=== PATIENT | female | born 1955 | race African-American/Black ===

== ENCOUNTER 2017-09-10 03:50 | Inpatient (IN) ==
[2017-09-10] MEDS ORDERED: SODIUM CHLORIDE 0.9% 1,000 ML IV STA (04:30)
[2017-09-10] MEDS ORDERED: PIPERACILLIN/TAZOBACTAM 3,375 MG in SODIUM CHLORIDE 0.9% 100 ML IV STA ×2 (04:31→07:25)
[2017-09-10 06:18] LABS: Basophils # 0.1 10*3/uL (0.0-0.2); Basophils % 0.7 % (0.0-0.8); Hematocrit 53.1 VOL% (35.7-47.0); Hemoglobin 18.3 GM/DL (12.0-16.0); Immature Granulocytes % 4.1 %; Immature Granulocytes Absolute 0.85 #; Lymphocytes # 2.4 10*3/uL (1.4-4.0); Lymphocytes % 11.6 % (21.3-54.2); Mean Corpuscular HGB Conc 34.5 GM/DL (32-36); Mean Corpuscular Hemoglobin 30 PG (27-34); Monocytes # 1.4 10*3/uL (0.11-0.8); Monocytes % 6.7 % (1.7-12.7); NRBC # 0.02 10*3/uL; Neutrophils # 15.8 10*3/uL (1.4-7.4); Neutrophils % 76.9 % (38.7-73.9); Platelet Count 356 T/CUMM (130-400); Red Cell Distribution Width 14.2 % (9.3-17.3); White Blood Count 20.6 T/CUMM (4-12)
[2017-09-10 06:32] LABS: Albumin 3.9 G/DL (3.4-5.0); Bilirubin,Total 1.4 MG/DL (0.2-1.0); Calcium 8.9 MG/DL (8.5-10.1); Osmolality,Calculated 288.8 MOS/KG (273-304); Potassium 3.8 MMOL/L (3.5-5.1); Total Protein 8.1 G/DL (6.4-8.3)
[2017-09-10] MEDS ORDERED: LIDOCAINE 2% 20 ML VIAL ONE (06:45)
[2017-09-10 06:58] LABS: Band Neutrophils 3 % (0-10); Giant Platelets Few; Lymphocytes 9 % (20-55); Platelet Estimate Adequate; Segmented Neutrophils 85 % (50-85); Total Cells Counted 100
[2017-09-10] MEDS ORDERED: SODIUM CHLORIDE 0.9% 2,000 ML IV STA (07:20)
[2017-09-10] MEDS ORDERED: cefOXitin 2,000 MG in SYRINGE 1 EACH IV ONE (08:31)
[2017-09-10] MEDS ORDERED: PHENYLEPHRINE 10 MG/1 ML VIAL IV ONE ×2 (08:50→11:31)
[2017-09-10] MEDS ORDERED: HEPARIN/NACL 0.9% 2 UNITS/ML 500 ML IV ONE (08:50)
[2017-09-10] MEDS ORDERED: CALCIUM CHLORIDE 1,000 MG/10 ML VIAL IV ONE ×2 (08:51→11:31)
[2017-09-10] MEDS ORDERED: SODIUM BICARBONATE 50 MEQ/50 ML SYRINGE IV ONE (08:51)
[2017-09-10 09:45] LABS: ABG Base Excess 8.8 MMOL/L (-2.5-2.5); ABG HCO3 32.6 MMOL/L (20-26); ABG Oxygen Saturation 99.2 % (95-100); ABG PCO2 37.9 MM HG (35-48); ABG PH 7.535 (7.35-7.45); ABG TCO2 27.8 MMOL/L (23-27); Glucose Heart Surgery 124 MG/DL (74-106); Hematocrit Heart Surgery 39.4 PERCENT (37-47); Hemoglobin Heart Surgery 12.8 G/DL (12.0-16.0); Ionized Calcium Arterial 0.87 MMOL/L (1.21-1.46); PCO2 Patient Temp Arterial 37.9 MMHG; PH Patient Temp Arterial 7.535; Patient Temperature 37 CELCIUS; Potassium Heart/CVR 3.3 MMOL/L (3.5-5.1); Sodium Heart/CVR 133 MMOL/L (135-145)
[2017-09-10] MEDS ORDERED: ROPIVACAINE 0.5% 30 ML VIAL ONE ×2 (10:35)
[2017-09-10] MEDS ORDERED: PROMETHAZINE 25 MG/1 ML VIAL IM PRN (10:41)
[2017-09-10] MEDS ORDERED: MORPHINE 4 MG/1 ML VIAL IV PRN (10:41)
[2017-09-10] MEDS ORDERED: ONDANSETRON 4 MG/2 ML VIAL IV PRN (10:41)
[2017-09-10] MEDS ORDERED: SEVOFLURANE 1 UNIT/15 MINUTE INH ONE (11:31)
[2017-09-10] MEDS ORDERED: MIDAZOLAM 2 MG/2 ML VIAL ONE (11:31)
[2017-09-10] MEDS ORDERED: fentaNYL 100 MCG/2 ML VIAL ONE (11:31)
[2017-09-10] MEDS ORDERED: SODIUM CHLORIDE 0.9% 250 ML IV ONE (11:32)
[2017-09-10] MEDS ORDERED: NEOSTIGMINE 10 MG/10 ML VIAL ONE (11:32)
[2017-09-10] MEDS ORDERED: ROCURONIUM 100 MG/10 ML VIAL IV ONE (11:32)
[2017-09-10] MEDS ORDERED: SUCCINYLCHOLINE 200 MG/10 ML VIAL ONE (11:32)
[2017-09-10] MEDS ORDERED: GLYCOPYRROLATE 0.4 MG/2 ML VIAL ONE (11:32)
[2017-09-10] MEDS ORDERED: LACTATED RINGERS 2,000 ML IV ONE (11:32)
[2017-09-10] MEDS ORDERED: EPINEPHrine 1 MG/ML VIAL ONE (11:32)
[2017-09-10] MEDS ORDERED: ETOMIDATE 40 MG/20 ML VIAL IV ONE (11:32)
[2017-09-10 11:53] LABS: Basophils # 0.1 10*3/uL (0.0-0.2); Basophils % 0.5 % (0.0-0.8); Hematocrit 41.6 VOL% (35.7-47.0); Hemoglobin 14.2 GM/DL (12.0-16.0); Immature Granulocytes % 2.2 %; Immature Granulocytes Absolute 0.28 #; Lymphocytes # 2.3 10*3/uL (1.4-4.0); Lymphocytes % 17.4 % (21.3-54.2); Mean Corpuscular HGB Conc 34.1 GM/DL (32-36); Mean Corpuscular Hemoglobin 30 PG (27-34); Mean Corpuscular Volume 86.3 FL (87-102); Mean Platelet Volume 11.1 FL (9.6-12.0); Monocytes # 0.8 10*3/uL (0.11-0.8); Monocytes % 6.3 % (1.7-12.7); Neutrophils # 9.6 10*3/uL (1.4-7.4); Neutrophils % 73.6 % (38.7-73.9); Platelet Count 308 T/CUMM (130-400); Red Blood Count 4.82 MC/CUMM (3.8-5.5); Red Cell Distribution Width 13.7 % (9.3-17.3)
[2017-09-10] MEDS: LACTATED RINGERS 1,000 ML IV SCH ×2 (12:00→22:00)
[2017-09-10 12:03] LABS: Calcium 9.5 MG/DL (8.5-10.1); Osmolality,Calculated 294.8 MOS/KG (273-304); Potassium 3.7 MMOL/L (3.5-5.1)
[2017-09-10 12:24] LABS: Band Neutrophils 4 % (0-10); Lymphocytes 8 % (20-55); Segmented Neutrophils 80 % (50-85); Total Cells Counted 100
[2017-09-10 12:25] LABS: Giant Platelets Few; Hypochromasia 1+; Ovalocytes Slight; Platelet Estimate Adequate
[2017-09-11] MEDS: LACTATED RINGERS 1,000 ML IV SCH ×3 (03:58→12:18)
[2017-09-11] MEDS ORDERED: ENOXAPARIN 30 MG/0.3 ML SYRINGE SUBCUT SCH (04:40)
[2017-09-11 06:02] LABS: Calcium 8.8 MG/DL (8.5-10.1); Osmolality,Calculated 292.5 MOS/KG (273-304); Potassium 3.9 MMOL/L (3.5-5.1)
[2017-09-11] MEDS: PANTOPRAZOLE 40 MG VIAL IV SCH (09:17)
[2017-09-11] MEDS: DEXT 5% NACL 0.45% KCL 20 MEQ 20 MEQ/1,000 ML BAG IV SCH (14:55)
[2017-09-12] MEDS: DEXT 5% NACL 0.45% KCL 20 MEQ 20 MEQ/1,000 ML BAG IV SCH ×4 (03:02→22:41)
[2017-09-12] MEDS: ENOXAPARIN 40 MG/0.4 ML SYRINGE SUBCUT SCH (04:41)
[2017-09-12 06:03] LABS: Basophils # 0.1 10*3/uL (0.0-0.2); Basophils % 0.4 % (0.0-0.8); Eosinophils % 0.2 % (0.00-10.9); Hematocrit 32.9 VOL% (35.7-47.0); Hemoglobin 11.4 GM/DL (12.0-16.0); Immature Granulocytes % 1.4 %; Immature Granulocytes Absolute 0.27 #; Lymphocytes # 1.8 10*3/uL (1.4-4.0); Lymphocytes % 9.5 % (21.3-54.2); Mean Corpuscular HGB Conc 34.7 GM/DL (32-36); Mean Corpuscular Hemoglobin 30 PG (27-34); Mean Corpuscular Volume 87.3 FL (87-102); Mean Platelet Volume 11.3 FL (9.6-12.0); Monocytes # 0.8 10*3/uL (0.11-0.8); Monocytes % 4.3 % (1.7-12.7); Neutrophils # 16.3 10*3/uL (1.4-7.4); Neutrophils % 84.2 % (38.7-73.9); Platelet Count 261 T/CUMM (130-400); Red Blood Count 3.77 MC/CUMM (3.8-5.5); Red Cell Distribution Width 14.3 % (9.3-17.3); White Blood Count 19.3 T/CUMM (4-12)
[2017-09-12 06:18] LABS: Calcium 8.1 MG/DL (8.5-10.1); Osmolality,Calculated 281.5 MOS/KG (273-304); Potassium 3.5 MMOL/L (3.5-5.1)
[2017-09-12 07:00] LABS: Band Neutrophils 10 % (0-10); Hypochromasia 2+; Lymphocytes 6 % (20-55); Microcytosis 1+; Platelet Estimate Adequate; Segmented Neutrophils 80 % (50-85); Total Cells Counted 100
[2017-09-12] MEDS: MULTIVITAMIN (CENTRUM) TABLET PO SCH (09:22)
[2017-09-12] MEDS: PANTOPRAZOLE 40 MG VIAL IV SCH (09:24)
[2017-09-13] MEDS: ENOXAPARIN 40 MG/0.4 ML SYRINGE SUBCUT SCH (04:42)
[2017-09-13 06:49] LABS: Basophils # 0.1 10*3/uL (0.0-0.2); Basophils % 0.3 % (0.0-0.8); Eosinophils # 0.1 10*3/uL (0.0-0.87); Eosinophils % 0.4 % (0.00-10.9); Hematocrit 34.3 VOL% (35.7-47.0); Hemoglobin 11.5 GM/DL (12.0-16.0); Immature Granulocytes % 2.4 %; Immature Granulocytes Absolute 0.49 #; Lymphocytes # 1.5 10*3/uL (1.4-4.0); Lymphocytes % 7.4 % (21.3-54.2); Mean Corpuscular HGB Conc 33.5 GM/DL (32-36); Mean Corpuscular Hemoglobin 30 PG (27-34); Mean Corpuscular Volume 89.1 FL (87-102); Mean Platelet Volume 10.5 FL (9.6-12.0); Monocytes # 0.8 10*3/uL (0.11-0.8); Neutrophils # 17.5 10*3/uL (1.4-7.4); Neutrophils % 85.5 % (38.7-73.9); Platelet Count 290 T/CUMM (130-400); Red Blood Count 3.85 MC/CUMM (3.8-5.5); Red Cell Distribution Width 14.5 % (9.3-17.3); White Blood Count 20.5 T/CUMM (4-12)
[2017-09-13 07:12] LABS: Eosinophils 1 % (0-10); Giant Platelets Few; Hypochromasia 1+; Lymphocytes 7 % (20-55); Microcytosis Slight; Platelet Estimate Adequate; Segmented Neutrophils 89 % (50-85); Total Cells Counted 100
[2017-09-13 07:22] LABS: Osmolality,Calculated 281.3 MOS/KG (273-304)
[2017-09-13] MEDS: DEXT 5% NACL 0.45% KCL 20 MEQ 20 MEQ/1,000 ML BAG IV SCH (08:54)
[2017-09-13] MEDS: PANTOPRAZOLE 40 MG VIAL IV SCH (08:54)
[2017-09-13] MEDS: MULTIVITAMIN (CENTRUM) TABLET PO SCH (08:54)
[2017-09-14] MEDS: ENOXAPARIN 40 MG/0.4 ML SYRINGE SUBCUT SCH (04:25)
[2017-09-14 05:39] LABS: Basophils # 0.1 10*3/uL (0.0-0.2); Basophils % 0.3 % (0.0-0.8); Eosinophils # 0.3 10*3/uL (0.0-0.87); Eosinophils % 1.7 % (0.00-10.9); Hematocrit 34.1 VOL% (35.7-47.0); Hemoglobin 11.3 GM/DL (12.0-16.0); Immature Granulocytes % 2.4 %; Immature Granulocytes Absolute 0.41 #; Lymphocytes # 1.7 10*3/uL (1.4-4.0); Lymphocytes % 9.9 % (21.3-54.2); Mean Corpuscular HGB Conc 33.1 GM/DL (32-36); Mean Corpuscular Hemoglobin 30 PG (27-34); Mean Corpuscular Volume 89.3 FL (87-102); Mean Platelet Volume 11.1 FL (9.6-12.0); Monocytes % 5.9 % (1.7-12.7); Neutrophils # 13.7 10*3/uL (1.4-7.4); Neutrophils % 79.8 % (38.7-73.9); Platelet Count 328 T/CUMM (130-400); Red Blood Count 3.82 MC/CUMM (3.8-5.5); Red Cell Distribution Width 14.6 % (9.3-17.3); White Blood Count 17.1 T/CUMM (4-12)
[2017-09-14] MEDS: MULTIVITAMIN (CENTRUM) TABLET PO SCH (09:47)
[2017-09-14] MEDS: PANTOPRAZOLE 40 MG VIAL IV SCH (09:48)
[2017-09-14 10:51] VITALS: BP 131/67
== END 2017-09-14 13:45 | disposition home or self-care (01) | DRG 336 ==
LOC: EDUNIT# → N.ED 03:50 → N.EDINP 09:01 → N.CC 09:07 → N.3E 09-11 15:00
PROVIDERS: ADMIT Surgery; ATTEND Surgery